=== PATIENT | male | born 1965 | race Caucasian/White ===

== ENCOUNTER 2016-05-23 07:15 | Inpatient (IN) | payer BC ==
[2016-05-23] MEDS ORDERED: Heparin for STEMI(*) 5,000 UNITS/ML 1 ML VIAL IV ONE (07:27)
[2016-05-23] MEDS ORDERED: Morphine INJ* 4 MG/ML 1 ML CARPUJECT IV ONE (07:27)
[2016-05-23] MEDS ORDERED: Morphine INJ* 2 MG/ML 1 ML CARPUJECT ONE (07:29)
[2016-05-23] MEDS ORDERED: Morphine INJ* 4 MG/ML 1 ML CARPUJECT ONE (07:29)
[2016-05-23] MEDS ORDERED: Nitroglycerin TAB 0.4 MG* 0.4 MG TAB ONE (07:31)
[2016-05-23 07:36] LABS: Hematocrit 46 % (42-52); Hemoglobin 15.6 g/dl (14.0-18.0); Mean Corpuscular HGB Conc 34 g/dl (31-36); Mean Corpuscular Hemoglobin 29 pg (27-31); Mean Corpuscular Volume 86 fL (80-94); Mean Platelet Volume 10 um3 (7.4-10.4); Red Blood Count 5.36 10^6/ul (4.0-5.4); Red Cell Distribution Width 13 % (10.5-15); White Blood Count 13.6 10^3/ul (3.5-10.8)
--- NOTE | 2016-05-23 07:36 | ED ---
HPI Chest Pain - HPI Summary HPI Summary: Patient presents for evaluation of acute onset of L anterior sharp chest pain with subsequent radiation down the left arm and diaphoresis at 0620 am. He was well before work, but at work lifted bags of salt and started with pain. No previous episodes, cough, congestion, positional association. Partially alleviated by NTG x 2 by EMS and given 324 mg of aspirin. Smokes 1.5 packs of cigarettes per day for the last 15 to 20 years. No FHX of early coronary history. - History of Current Complaint Time Seen by Provider: 05/23/16 07:22 Hx Obtained From: Patient, EMS Onset/Duration: Started Minutes Ago Timing: Constant Initial Severity: Severe Current Severity: Moderate - Allergy/Home Medications Allergies/Adverse Reactions: Allergies Allergy/AdvReac Type Severity Reaction Status Date / Time No Known Allergies Allergy Verified 11/19/15 15:53 Home Medications: Home Medications Chantix 1 mg BID 05/23/16 [History Confirmed 05/23/16] Ibuprofen TAB* [Motrin TAB*] 800 mg PO BID 05/23/16 [History Confirmed 05/23/16] PMH/Surg Hx/FS Hx/Imm Hx Cardiovascular History: Reports: Hx Hypertension - BORDERLINE Respiratory History: Reports: Hx Asthma - Surgical History Surgery Procedure, Year, and Place: LEFT KNEE SURGERY--arthoscopic. T & A. tubes in ears Infectious Disease History: Denies: Traveled Outside the [place] in Last 30 Days - Family History Known Family History: Positive: Hypertension - Social History Alcohol Use: Rare Substance Use Type: Reports: None Smoking Status (MU): Heavy Every Day Tobacco Smoker Type: Cigarettes Amount Used/How Often: 1 ppd Length of Time of Smoking/Using Tobacco: on & off Have You Smoked in the Last Year: Yes Review of Systems Positive: Chest Pain Negative: Shortness Of Breath All Other Systems Reviewed And Are Negative: Yes Physical Exam Triage Information Reviewed: Yes Vital Signs Reviewed: Yes Appearance: Positive: Well-Nourished, Ill-Appearing, Pain Distress Skin: Positive: Warm, Skin Color Reflects Adequate Perfusion, Dry Head/Face: Positive: Normal Head/Face Inspection Eyes: Positive: Normal, EOMI, BRANDY ENT: Positive: Normal ENT inspection, Other - No carotid bruits. Respiratory/Lung Sounds: Positive: Clear to Auscultation, Breath Sounds Present Cardiovascular: Positive: Normal, RRR, Pulses are Symmetrical in both Upper and Lower Extremities Abdomen Description: Positive: Nontender, No Organomegaly, Soft Musculoskeletal: Positive: Normal, Strength/ROM Intact Neurological: Positive: Normal, Sensory/Motor Intact, Alert, Oriented to Person Place, Time, CN Intact II-III, Reflexes Intact Diagnostics - Laboratory Result Diagrams: 05/23/16 07:25 05/23/16 07:25 Lab Statement: Any lab studies that have been ordered have been reviewed, and results considered in the medical decision making process. - EKG No standard instances Cardiac Rate: NL EKG Rhythm: Sinus Rhythm ST Segment: Non-Specific - ST elevation in II, III, aVF with T wave inversions in same inferior leads and V6. Chest Pain Course/Dx - Chest Pain Differential Diagnosis/HQI/PQRI: Acute WA, ACS, Angina, Other: - Primary concern for STEMI in evolution. Equal pulses with hypokinetic lateral left wall on bedside TTE. 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 - Diagnoses Provider Diagnoses: ACS (acute coronary syndrome), STEMI - Provider Notifications Discussed Care Of Patient With: 06:55a Case discussed with Assistant Center Director about en route STEMI with concerning EKG. It was texted to him at 07:07a. 07:13a Patient assessed with new EKG and STEMI in evolution. Texted to Assistant Center Director who agreed to continue STEMI care. CXR reviewed and without mediastinal widening, given heparin in the ED. - Critical Care Time Critical Care Time: 30-74 min Discharge - Discharge Plan Condition: Guarded Disposition: ADMITTED TO [facility]
[2016-05-23 07:49] LABS: Calcium 9.4 mg/dL (8.6-10.3); EGFR African American 102.6 (>60); EGFR Non-African American 79.8 (>60); Potassium 4.1 mmol/L (3.5-5.0)
[2016-05-23 08:02] LABS: Troponin I 12.58 ng/mL (<0.04)
--- NOTE | 2016-05-23 08:08 | ED ---
Progress - Progress Note Progress Note: Troponin called in from lab - 12.58 -this was relayed to Diana Mack in the Accounts Payable Clerk at 8:03am 05/23/2016 Course/Dx - Diagnoses Provider Diagnoses: ACS (acute coronary syndrome) - Provider Notifications Discussed Care Of Patient With: 06:55a Case discussed with Waste[employer] Treatment Plant Supervisor about en route STEMI with concerning EKG. It was texted to him at 07:07a. 07:13a Patient assessed with new EKG and STEMI in evolution. Texted to Wastewater Treatment Plant Supervisor who agreed to continue STEMI care. CXR reviewed and without mediastinal widening, given heparin in the ED.
--- NOTE | 2016-05-23 08:12 | RAD ---
INDICATION: Chest pain COMPARISON: None. TECHNIQUE: Single AP portable view of the chest was obtained. FINDINGS: Image quality is compromised due to the relative inferiority of a portable chest x-ray. The heart and mediastinum exhibit normal size and contour. The lungs are grossly clear. There is no evidence of a large pleural effusion. Visualized bones are normal for the patient's age. IMPRESSION: No radiographic evidence for acute cardiopulmonary abnormality on this portable chest x-ray.
[2016-05-23] MEDS ORDERED: Ticagrelor* 90 MG TAB PO ONE ×2 (08:22)
[2016-05-23] MEDS ORDERED: Nitroglycerin TAB 0.4 MG* 0.4 MG TAB SL PRN (10:22)
[2016-05-23] MEDS ORDERED: Zolpidem TAB* 5 MG PO PRN (10:29)
[2016-05-23] MEDS ORDERED: Acetaminophen TAB* 325 MG PO PRN (10:29)
[2016-05-23] MEDS ORDERED: NS 0.9% 1000 ML* 1,000 ML IV SCH (10:30)
[2016-05-23] MEDS: Metoprolol Tartrate TAB* 25 MG PO SCH ×2 (11:01→18:44)
[2016-05-23] MEDS ORDERED: LORazepam INJ* 2 MG/ML 1 ML VIAL IV PUSH ONE (12:00)
--- NOTE | 2016-05-23 15:39 | ECHO ---
Patient: KYLE PEPE [facility] Rec#: [id number] : 1965 Date: 05/23/2016 Age: 50y Height: 175.3 cm / 69.0 in Weight: 111.1 kg / 244.9 lbs Sex: M BSA: 2.25 Room#: [facility] Admit Date#: 05/23/2016 Type: Inpatient Referring: Diamond Fountain MD Reading: Nacho Batista MD Masonry Installer: Lawanda Guerra Masonry Installer: Mary Ellen Calvo [facility] Transthoracic Echocardiogram Indication: STEMI BP: 91/52 HR: 67 Rhythm: NSR Findings History: Borderline HTN, Smoker, STEMI, S/P PCI. Technical Comments: The study is technically limited due to patient body habitus. The study is technically limited due to the patient's smoking history. Completed at 1325. Left Ventricle: The left ventricular chamber size is mildly dilated. Mild to moderate concentric left ventricular hypertrophy is observed. The estimated ejection fraction is 45-50%. The assessment of diastolic function is non-diagnostic. The basal inferolateral, basal inferior, basal inferoseptal, mid inferolateral, mid inferior, mid inferoseptal, and apical inferior wall segments are hypokinetic (score 2). Overall wallmotion score index is 1.44 Left Atrium: The left atrial chamber size is normal. Right Ventricle: The right ventricular cavity size is normal. The right ventricular global systolic function is mildly reduced. Right Atrium: The right atrium is mildly dilated. Aortic Valve: The aortic valve is trileaflet. There is no evidence of aortic valve thickening. There is no evidence of aortic regurgitation. There is no evidence of aortic stenosis. Mitral Valve: The mitral valve leaflets are mildly thickened. There is a trace of mitral regurgitation. There is no evidence of mitral stenosis. Tricuspid Valve: The tricuspid valve leaflets are normal. There is trace tricuspid regurgitation. Unable to estimate the right ventricular systolic pressure. There is no tricuspid stenosis. Pulmonic Valve: The pulmonic valve appears normal. There is a trace pulmonic regurgitation. There is no pulmonic stenosis. Pericardium: There is no significant pericardial effusion. Aorta: There is no dilatation of the ascending aorta. There is no dilatation of the aortic arch. There is no dilation of the aortic root. Pulmonary Artery: The main pulmonary artery appears normal. Venous: The venous system is not well visualized. The inferior vena cava is not visualized. Summary: There was not any prior study for comparison. Conclusions The left ventricular chamber size is mildly dilated. Mild to moderate concentric left ventricular hypertrophy is observed. The estimated ejection fraction is 45-50%. The basal inferolateral, basal inferior, basal inferoseptal, mid inferolateral, mid inferior, mid inferoseptal, and apical inferior wall segments are hypokinetic (score 2). There is a trace of mitral regurgitation. There is trace tricuspid regurgitation. There is a trace pulmonic regurgitation. Measurements Name Value Normal Range RVIDd (AP) 2D 3 cm (0.9 - 2.6) RVDdMajor (2D) 3.8 cm (2.2 - 4.4) RAd ISD 4CH 5.8 cm (3.4 - 4.9) RA (A4C)W 4.8 cm (2.9 - 4.6) IVSd (2D) 1.3 cm (0.6 - 1) LVPWd (2D) 1.4 cm (0.6 - 1) LVIDd (2D) 5.7 cm (3.6 - 5.4) LVIDs (2D) 4.9 cm - LV FS (2D) 14 % (25 - 45) Aortic Annulus 2.4 cm (1.4 - 2.6) Ao root diameter (2D) 3.5 cm (2.1 - 3.5) Ascending Ao 3.1 cm (2.1 - 3.4) Aortic arch 2.4 cm (1.8 - 3.4) Descending Ao 0.7 cm - LA dimension (AP) 2D 3.3 cm (2.3 - 3.8) LAd ISD 4CH 5.3 cm (2.9 - 5.3) LA ISD 4CH W 3.9 cm (2.5 - 4.5) Name Value Normal Range LA ESV SP 4CH (A/L) 38 ml - LA ESV SP 2CH (A/L) 81 ml - LA ESV BP (A/L) 56 ml - LA ESV BP (A/L) index 24.78 ml/m2 - LA ESV SP 4CH (MOD) 36 ml - LA ESV SP 2CH (MOD) 79 ml - Name Value Normal Range MV E-wave Vmax 0.5 m/sec - MV deceleration time 221 msec - MV A-wave Vmax 0.6 m/sec - MV E:A ratio 0.86 ratio - LV septal e' Vmax 0.05 m/sec - LV lateral e' Vmax 0.06 m/sec - LV E:e' septal ratio 10 ratio - LV E:e' lateral ratio 8.3 ratio - Name Value Normal Range AV Vmax 1.6 m/sec - AV VTI 25.2 cm - AV peak gradient 9.78 mmHg - AV mean gradient 4.88 mmHg - LVOT Vmax 0.9 m/sec - LVOT VTI 17.8 cm - LVOT peak gradient 3.57 mmHg - LVOT mean gradient 1.61 mmHg - Name Value Normal Range PV Vmax 0.9 m/sec - PV peak gradient 3.2 mmHg - Wallmotion BAS Normal BA Normal BAL Normal JENN Hypokinetic BI Hypokinetic BIS Hypokinetic MAS Normal MA Normal MAL Normal MIL Hypokinetic KY Hypokinetic MIS Hypokinetic Normal AA Normal AL Normal AI Hypokinetic APEX Normal
[2016-05-23] MEDS: Atorvastatin* 80 MG TAB PO SCH (17:51)
[2016-05-23] MEDS: NS 0.9% 1000 ML* 1,000 ML IV SCH ×2 (18:13→22:31)
--- NOTE | 2016-05-23 19:31 | HP ---
[facility]; Dr[facility] Diamond Fountain HISTORY AND PHYSICAL: DATE OF ADMISSION: 05/23/16 [facility] HISTORY OF PRESENT ILLNESS: A 50-year-old male presenting to the ER with inferior- wall ST elevatio n infarct. He has no previous cardiac or medical history of significance. He does have problems with his cervi lorenza spine and left shoulder where he thinks he may have a rotator cuff injury. For the past week, baldomero crawford has noticed some discomfort across the upper part of his back and maybe some left-sided chest disc omfort with movement of his left arm, but no clear anginal symptoms. This morning, he presented to the ER with precordial chest pain, which he describes as a left anterior sharp pain with radiation d own the left arm and diaphoresis that started around 6:30 in the morning. This started while he was lifting some bags. He had partial relief with sublingual nitroglycerin given by EMS, also received aspirin. EKG at 0713 hours revealed already QS in aVF, as well as terminal T-wave changes with inv ersion in II, III, and aVF, poor R-wave progression, and still approximately [address] oneyda vation. He was brought to the cytogenetics laboratory manager for emergent catheterization. Even in retrospect, he has no clear cardiac history; however, he has been more fatigued for the past month or so, but has been extremely stressed at work. PAST MEDICAL HISTORY: Noncontributory. MEDICATIONS: Prehospital medications, only occasional ibuprofen. ALLERGIES: None. FAMILY HISTORY: Negative for premature coronary disease. SOCIAL HISTORY: He is a nonsmoker. PHYSICAL EXAMINATION VITAL SIGNS: His initial ER vitals, 112/88, heart rate in the 80s. HEENT: Unremarkable, male pattern baldness. NECK: Trachea midline. No thyromegaly. LUNGS: His lungs were clear laterally without any rales, wheezes, or rhonchi. JVP and carotids wer e normal. No bruits. CARDIAC: Calvert and RV not palpable, normal S1 and S2. No gallop, murmur, or rub. ABDOMEN: Soft and nontender. No bruit. Liver not palpable, nor aorta. No tenderness, no masses. Normal bowel sounds. Radial, femoral, and pedal pulses were palpable. He had no cyanosis, clubbin g, or edema. EXTREMITIES: Perfused. No cyanosis, clubbing, or edema. SKIN: Without lesions, warm. DIAGNOSTIC STUDIES/LAB DATA: EKG as above. White count elevated at 13.6, otherwise normal. First troponin already elevated at 12.58 consistent with infarct within the past 24 hours. Random blood sugar 136. His LDL 113, HDL 31.2, cholesterol 189, triglycerides 224 last January. Chest x-ray showed no acute changes by my review on a portable film. IMPRESSION: 1. Inferior wall ST-elevation infarct, late presentation based on EKG and troponins, although clini yessenia it is difficult to pinpoint the exact time of infarct. Nonetheless, he had ischemic pain this morning, partial response to nitro, underwent emergent catheterization. 2. Tobacco use. We will encourage him not to resume smoking. 3. Cervical spine and rotator cuff symptoms. [id number]/[facility] #: [id number]
[2016-05-23] MEDS: Ticagrelor* 90 MG TAB PO SCH (21:05)
--- NOTE | 2016-05-24 02:06 | CATH ---
CC: [facility]; Diamond Fountain MD STENT REPORT: DATE OF PROCEDURE: 05/23/16 PRIMARY CARE PROVIDER: [facility]. PROCEDURES: 1. Right radial artery access. 2. Bilateral selective coronary cineangiography. STENT PLACEMENT: RCA 4.0 x 12 Synergy drug-eluting stent. HISTORY: A 50-year-old male with inferior wall ST elevation infarct with late presentation based on already inferior Q-waves and already positive troponin, but persisting precordial chest pain. PROCEDURE ACCESS: Right radial artery sheath 6-F slender. MEDICATIONS: 1. Subcu lidocaine. 2. IV Versed. 3. IV fentanyl. 4. Heparin 4000 units in the ER, additional heparin 4000 units IV. 5. Brilinta 180 mg p.o. loading dose. DIAGNOSTIC CATHETER: A 5-F TIG4, 5-FL 3.5 guiding catheter, 6-F IR. One wire, 14 BMW used to deplo y a 4.0 x 12 Synergy drug-eluting stent mid RCA, 18 atmospheres 40 seconds. Because of another STEM I in the ER, left heart catheterization and left ventriculography were not performed. HEMODYNAMICS: Initial BP 132/75, final 108/59. ANGIOGRAPHY: RCA. The RCA is large, dominant, at the acute margin there is a 90% stenosis, distal R CA has JENNIFER-2 flow. The PDA is relatively small, is followed by 2 moderate posterolaterals. The ac anais marginal branch supplies a portion of the distal inferior septum. After the stent placement RCA, there is negative residual stenosis, distal normal flow. Distal RCA has a very large distribution, has scattered luminal irregularity, but no significant stenosis. Left main. The left main is long, smooth without stenosis. LAD. The LAD is moderate with a large first diagonal, the LAD extends to the apex, the LAD has prox imal, less than 30% stenosis. Circumflex. The circumflex is moderate with a large ramus branch, small second marginal, ends with a small posterolateral, the circumflex has no significant stenosis. CONCLUSION: 1. Single-vessel disease RCA, with inferior ST elevation infarct, excellent angiographic result wit h drug-eluting stent placement. 2. LV gram not performed. 3. Successful right radial artery access. [id number]/[facility] #: [id number]
[2016-05-24] MEDS: Metoprolol Tartrate TAB* 25 MG PO SCH ×3 (03:05→20:33)
[2016-05-24 05:49] LABS: Hematocrit 40 % (42-52); Hemoglobin 13.7 g/dl (14.0-18.0); Mean Corpuscular HGB Conc 34 g/dl (31-36); Mean Corpuscular Hemoglobin 29 pg (27-31); Mean Corpuscular Volume 86 fL (80-94); Mean Platelet Volume 10 um3 (7.4-10.4); Red Blood Count 4.67 10^6/ul (4.0-5.4); Red Cell Distribution Width 13 % (10.5-15); White Blood Count 9.8 10^3/ul (3.5-10.8)
[2016-05-24 06:02] LABS: BUN/Creatinine Ratio 16.5 (8-20); Calcium 8.7 mg/dL (8.6-10.3); EGFR African American 99.1 (>60); EGFR Non-African American 77.1 (>60); Potassium 4.1 mmol/L (3.5-5.0)
[2016-05-24] MEDS: NS 0.9% 1000 ML* 1,000 ML IV SCH (07:07)
[2016-05-24] MEDS: Aspirin Low Dose CHEW TAB* 81 MG PO SCH (09:27)
[2016-05-24] MEDS: Ticagrelor* 90 MG TAB PO SCH ×2 (09:27→20:33)
[2016-05-24] MEDS: Atorvastatin* 80 MG TAB PO SCH (17:09)
[2016-05-24] MEDS: CMCS: Varenicline (NF) 1 MG TAB PO SCH (20:33)
[2016-05-24 23:26] LABS: HDL Cholesterol 31.5 mg/dL
--- NOTE | 2016-05-25 07:22 | PTEDU ---
Patient Name: KYLE PEPE PEPEKYLE selected video: About Your Heart Attack to view on 05/25/2016 at 7:21:20 AM from [facility] _[id number]
[2016-05-25] MEDS: Metoprolol Tartrate TAB* 25 MG PO SCH ×2 (09:52→21:41)
[2016-05-25] MEDS: CMCS: Varenicline (NF) 1 MG TAB PO SCH ×2 (09:53→21:41)
[2016-05-25] MEDS: Ticagrelor* 90 MG TAB PO SCH ×2 (09:54→21:42)
[2016-05-25] MEDS: Aspirin Low Dose CHEW TAB* 81 MG PO SCH (09:54)
[2016-05-25] MEDS: Lisinopril TAB* 5 MG PO SCH (12:08)
[2016-05-25] MEDS: Atorvastatin* 80 MG TAB PO SCH (16:54)
[2016-05-26 07:59] VITALS: BP 102/61
[2016-05-26] MEDS: Metoprolol Tartrate TAB* 25 MG PO SCH (08:04)
[2016-05-26] MEDS: Lisinopril TAB* 5 MG PO SCH (08:04)
[2016-05-26] MEDS: Aspirin Low Dose CHEW TAB* 81 MG PO SCH (08:05)
[2016-05-26] MEDS: CMCS: Varenicline (NF) 1 MG TAB PO SCH (08:05)
--- NOTE | 2016-05-26 08:30 | DS ---
DISCHARGE SUMMARY: DATE OF ADMISSION: 05/23/16 DATE OF DISCHARGE: 05/26/16 FINAL DIAGNOSIS: Late presentation of an acute ST-segment elevation inferior wall myocardial infarction. HISTORY AND HOSPITAL COURSE: This is Dr. Malik dictating a discharge summary for Dr. Diamond Fountain regarding patient, Mike Ruth. He presented acutely on 05/23/16 in the throes of a late inferior wall myocardial infarction. He was taken emergently to the cardiovascular laboratory on 05/23/16, where he was found to have a critically stenosed 90% to 95% lesion at the acute marginal branch in the right coronary artery with JENNIFER-2 flow. The left anterior descending artery had only mild disease with no significant disease in the circumflex. The patient underwent successful primary stenting with a 4.0 x 12 mm long Synergy drug-eluting stent. The patient was taken off the table because of an emergency situation with a second ST-elevation myocardial infarction in the emergency room and as such, the patient underwent a transthoracic echocardiogram to look at LV function later on that same day. Ejection fraction was 45% to 50% with hypokinesis seen to the inferior wall. There was [id number] concentric left ventricular hypertrophy with trace mitral, tricuspid, and pulmonic regurgitation. Over the course of the hospitalization, the patient did well, was up and about, and had no recurrence of symptoms. PHYSICAL EXAMINATION: On the day of discharge revealed vital signs, blood pressure 105/62, pulse 61, respirations 16, afebrile. Neck was supple without increased JVP. Carotid had good upstroke and volume without bruits. Conjunctivae pink. Sclerae clear. Lungs: Revealed no accessory muscle usage. There was mild wheeze noted. No active rhonchi or rales. Heart: Revealed a regular rate and rhythm, bradycardic in nature without significant systolic murmur. Abdomen was soft, mildly obese, nontender. The right radial site was well healed with a good antegrade flow down the right radial artery. There was no peripheral edema. Neuro: The patient alert, oriented with normal mentation. Musculoskeletal: The patient walked with normal gait. Psychiatric: The patient with normal affect. DIAGNOSTIC STUDIES: Electrocardiogram showed sinus bradycardia, heart rate 55. There were Q waves noted in III and aVF with a very small R wave in lead II, T- wave inversion inferiorly in V6 were noted, biphasic in V5. MEDICATIONS AT THE TIME OF DISCHARGE: Included: 1. Aspirin 81 mg a day. 2. Atorvastatin 80 mg a day. 3. Soma tablet as at home. 4. Lisinopril 5 mg daily. 5. Metoprolol tartrate 25 mg twice a day. 6. Nitroglycerin as needed. 7. Prasugrel 10 mg daily. 8. Chantix. DISCHARGE FOLLOWUP: The patient has a followup scheduled with Dr. Diamond Fountain on 06/02/16 to review all of his medications and for further management. The patient received an education booklet and a stent card by Dr. Fountain. CC: [facility] in [place], [place]; Gen Fountain MD* [id number]/[facility] #: [id number] [facility]ks[facility]
[2016-05-26] MEDS ORDERED: CMC:Prasugrel (NF) 10 MG PO SCH (09:00)
== END 2016-05-26 10:00 | disposition home or self-care (01) | DRG 174 ==
LOC: ED 07:15 → ICU 08:52 → MEDTELE 05-24 22:14
PROVIDERS: ADMIT Internal Medicine Cardiovascular Disease; ATTEND Internal Medicine Cardiovascular Disease
PROC: B2111ZZ Fluoroscopy of Multiple Coronary Arteries using Low Osmolar Contrast (ICD-10-PCS; 2016-05-23)
PROC: 027034Z Dilation of Coronary Artery, One Artery with Drug-eluting Intraluminal Device, Percutaneous Approach (ICD-10-PCS; principal; 2016-05-23 07:00)
DX: I21.19 ST elevation (STEMI) myocardial infarction involving other coronary artery of inferior wall (principal); I08.3 Combined rheumatic disorders of mitral, aortic and tricuspid valves; I10 Essential (primary) hypertension; F17.210 Nicotine dependence, cigarettes, uncomplicated; J45.909 Unspecified asthma, uncomplicated; I25.10 Atherosclerotic heart disease of native coronary artery without angina pectoris; I51.7 Cardiomegaly; Z79.82 Long term (current) use of aspirin; Z79.02 Long term (current) use of antithrombotics/antiplatelets; Z82.49 Family history of ischemic heart disease and other diseases of the circulatory system
CPT/HCPCS: 36415; 71010; 80048; 80061; 84484; 85025; 85027; 85610; 85730; 86141; 87641; 93005; 93306; 99406; A9270-GY; C1769; C1876; C9606-RC; J2060; J2270